=== PATIENT | female | born 1985 | race Caucasian/White ===

== ENCOUNTER 2017-01-24 23:04 | Emergency (ER) | payer OTHER ==
[~2017-01-24] VITALS: Ht 162.6 cm; Wt 55.0 kg
[2017-01-24 23:07] VITALS: BP 98/64; PULSE 51; RESP 16; TEMP 97.8; O2SAT 99
--- NOTE | 2017-01-25 00:06 | PD ---
HPI Chief Complaint: Fall Time Seen by Provider: 00:01 Travel History International Travel<30 days: No Contact w/Intl Traveler<30days: No Traveled to known affect area: No History of Present Illness HPI 31-year-old white female presents to emergency department for evaluation of a fall. The patient is accompanied by her sister and mother. The patient had been drinking alcohol this evening. She states that she tripped and stumbled going into the hotel striking her face on the glass door. She states that she was dazed but does not feel she was knocked unconscious. She has had some dizziness and headache after the injury but no vomiting, numbness, tingling or weakness. She is up-to-date with immunizations. Pain is mild. [facility] Past Medical History Medical History: Denies Significant Hx Tetanus Vaccination: < 5 Years ?: Not Past Surgical History Surgical History: No Previous Surgery Social History Alcohol Use: Yes Tobacco Use: No Substance Use: No Allergies-Medications (Allergen,Severity, Reaction): Coded Allergies: No Known Allergies (Unverified , 01/24/17) Reported Meds & Prescriptions Reported Meds & Active Scripts Active No Active Prescriptions or Reported Medications Review of Systems Except as stated in HPI: all other systems reviewed are Neg Physical Exam Narrative GENERAL: Well-developed, well-nourished in no apparent distress. Nontoxic appearing. Smells of EtOH and appears intoxicated. HEAD: Normocephalic, patient has a 3 cm laceration to the right eyebrow which is slightly irregular and jagged. Positive hematoma with ecchymosis. EYES: Pupils equal round and reactive. Extraocular motions intact. No scleral icterus. No injection or drainage. ENT: Nose clear. Throat without erythema, tonsillar hypertrophy or exudate. Uvula midline. Airway patent. NECK: Trachea midline. Supple, nontender, moves head freely. No central bony tenderness or spasm. CARDIOVASCULAR: Regular rate and rhythm without murmurs, gallops, or rubs. RESPIRATORY: Clear to auscultation. Breath sounds equal bilaterally. No wheezes , rales, or rhonchi. GASTROINTESTINAL: Abdomen soft, non-tender, nondistended. No hepato-splenomegaly , or palpable masses. No guarding. EXTREMITIES: No clubbing, cyanosis, or edema. No joint tenderness. BACK: Nontender without deformity. No flank tenderness. NEUROLOGICAL: Awake, alert and oriented x 3 .Cranial nerves grossly intact. Motor and sensory grossly within normal limits. Mild slurred speech. Patient moves her extremities in a coordinated fashion. Data Data Last Documented VS Vital Signs Date Time Temp Pulse Resp B/P Pulse Ox O2 Delivery O2 Flow Rate FiO2 01/24/17 23:07 97.8 51 16 98/64 99 Room Air Orders Ice/Cold Pack (01/24/17 23:59) MDM Medical Decision Making Medical Screen Exam Complete: Yes Emergency Medical Condition: Yes Medical Record Reviewed: Yes Differential Diagnosis MDM: High Differential diagnoses: Fracture, sprain, strain, dislocation, contusion, neurovascular injury Narrative Course I discussed the patient's history and exam with family members. At this time we have decided not to perform a CAT scan of the brain. She seems to be alert and oriented. Strict head precautions have been given. 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 They feel comfortable taking the patient home. Patient's lacerations closed with sutures. Procedures Procedure Narrative LACERATION LOCATION: Right eyebrow LENGTH: 3 cm NUMBER OF STITCHES/PAULA: 6 REPAIR: The area of the laceration was prepped with Betadine and sterilely draped. The laceration was infiltrated with 1% lidocaine with epinephrine. The wound was copiously irrigated and explored without evidence of foreign body , tendon injury or neurovascular injury. The wound was closed using 6-0 proline. This was a simple single layer repair. A sterile dressing was applied. The patient was advised to keep the dressing clean and dry. Patient tolerated the procedure well. Diagnosis Primary Impression: Facial laceration Qualified Code: S01.81XA - Facial laceration, initial encounter Additional Impressions: Fall Qualified Code: W19.XXXA - Fall, initial encounter Head contusion Qualified Code: S05.11XA - Contusion of right orbital tissues, initial encounter Patient Instructions: General Instructions Additional Instructions: Rest. Ice pack tonight. Head precautions. Tylenol or Advil for pain. Daily wound care with soap, water, Neosporin. Sutures out in 5 days. Sunscreen and mederma for 6 months. Return to the ER for any problems. Med/Other Pt SpecificInfo: Wound Care Scripts No Active Prescriptions or Reported Meds Disposition: 01 DISCHARGE HOME Condition: Stable Andi Andrade Jan 25, 2017 00:05
== END 2017-01-25 01:11 | disposition home or self-care (01) ==
LOC: NEPB 23:04
DX: S01.111A Laceration without foreign body of right eyelid and periocular area, initial encounter (principal); S00.93XA Contusion of unspecified part of head, initial encounter; W01.198A Fall on same level from slipping, tripping and stumbling with subsequent striking against other object, initial encounter; Y93.89 Activity, other specified; Y92.59 Other trade areas as the place of occurrence of the external cause
CPT/HCPCS: 12013